=== PATIENT | female | born 1975 | race Caucasian/White ===

== ENCOUNTER 2019-08-07 13:24 | Emergency (ER) | payer MEDICARE ==
[~2019-08-07] VITALS: Ht 170.2 cm; Wt 76.9 kg
[2019-08-07 13:30] VITALS: BP 121/63; Ht 170.2 cm; Wt 76.9 kg
[2019-08-07] MEDS ORDERED: BUPRENORPHINE HC8 MG SL (13:31)
[2019-08-07] MEDS ORDERED: PAXIL10 MG/5 ML PO (13:32)
[2019-08-07] MEDS ORDERED: XANAX1 MG PO (13:32)
== END 2019-08-07 14:39 | disposition home or self-care (01) ==
LOC: D.ER 13:24
DX: F13.20 Sedative, hypnotic or anxiolytic dependence, uncomplicated (principal); F17.210 Nicotine dependence, cigarettes, uncomplicated